=== PATIENT | male | born 1950 | race Caucasian/White ===

== ENCOUNTER 2021-12-23 10:08 | Outpatient (CLI) | payer BC, SELFPAY ==
--- NOTE | 2021-12-23 09:30 | DI.CT_ITS ---
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 There is no evidence of intracranial hemorrhage, mass effect, or midl ine shift. The orbital and temporal bone structures appear intact. Visualized paranasal sinuses and mastoid air cells are clear. IMPRESSION: Noncontrast scan only is unremarkable for age. If there is high clinical suspicion of intracranial v ascular disease, additional evaluation with MR angiography may be considered. RADIATION DOSE DELIVERED: 919.15mGy.cm Total DLP !Error CTDIvol DATA REPOSITORY: All CT scans at this facility are submitted to the National Radiology Data Registry (NRDR) Dose Index Registry (DIR) with the [employer] ([employer]). RADIATION OPTIMIZATION: All CT scans at this facility use at least one of these dose optimization te chniques: automated exposure control; mA and/or kV adjustment per patient size (includes targeted exa ms where dose is matched to clinical indication); or iterative reconstruction.
[2021-12-23 12:35] LABS: CREATININE 1.3 mg/dL (0.70-1.30); Estimated GFR 59.47 (mL/min/1.73m2)
== END 2021-12-23 10:28 ==
PROVIDERS: PCP Internal Medicine; Visit Provider Registered Nurse Maternal Newborn
DX: H93.A1 Pulsatile tinnitus, right ear (principal)
CPT/HCPCS: 70450; 82565

== ENCOUNTER → 2022-02-16 01:38 | Outpatient (CLI) | payer BC, SELFPAY ==
--- NOTE | 2022-02-16 06:30 | DI.MRI_ITS ---
Exam(s) MR ANGIO BRAIN WO CLINICAL HISTORY: Right-sided pulsatile tinnitus,H93.A1. TECHNIQUE: Multiplanar multisequence MRA of the brain was performed. COMPARISON: Comparison CT brain 12/23/2021. FINDINGS: Carotid Arteries: No aneurysm, occlusion or significant stenosis. Anterior Cerebral Arteries: Right: No aneurysm, occlusion or significant stenosis. Left: No aneurysm, occlusion or significant stenosis. Middle Cerebral Arteries: Right: No aneurysm, occlusion or significant stenosis. Left: No aneurysm, occlusion or significant stenosis. Posterior Cerebral Arteries: Right: No aneurysm, occlusion or significant stenosis. Left: No aneurysm, occlusion or significant stenosis. Vertebral Arteries: Right: No aneurysm, occlusion or significant stenosis. Left: No aneurysm, occlusion or significant stenosis. Basilar Artery: No aneurysm, occlusion or significant stenosis. IMPRESSION: Normal MRA examination of the [place]. DATA REPOSITORY:
== END ==
PROVIDERS: PCP Internal Medicine; Visit Provider Registered Nurse Maternal Newborn
DX: H93.A1 Pulsatile tinnitus, right ear (principal)
CPT/HCPCS: 70544